=== PATIENT | female | born 1935 | race Caucasian/White ===

== ENCOUNTER 2017-11-13 06:47 | Inpatient (IN) | payer OTHER, MEDICARE ==
[2017-11-13] MEDS ORDERED: SODIUM CHLORIDE 0.9% FLUSH 10 ML FLUSH IVF (07:30)
[2017-11-13] MEDS: SODIUM CHLOR 0.9% 1000 ML INJ 1,000 ML IV ×4 (07:41→21:00)
[2017-11-13 07:42] LABS: AUTOMATED NEUTROPHIL # 14.5 TH/MM3 (1.8-7.7); BASOPHIL # 0.1 TH/MM3 (0-0.2); BASOPHIL % 0.7 % (0.0-2.0); EOSINOPHIL # 0.2 TH/MM3 (0-0.4); HEMATOCRIT 38.2 % (35.0-46.0); HEMO FLAGS DIFF FINAL; HEMOGLOBIN 13.2 GM/DL (11.6-15.3); LYMPH % 7.9 % (9.0-44.0); LYMPHOCYTE # 1.3 TH/MM3 (1.0-4.8); MEAN CELL VOLUME 90.5 FL (80.0-100.0); MEAN CORPUSCULAR HEMOGLOBIN 31.3 PG (27.0-34.0); MEAN CORPUSCULAR HGB CONC 34.5 % (32.0-36.0); MEAN PLATELET VOLUME 8.9 FL (7.0-11.0); MONO % 5.5 % (0.0-8.0); MONOCYTE # 0.9 TH/MM3 (0-0.9); NEUT % 84.9 % (16.0-70.0); PLATELET COUNT 263 TH/MM3 (150-450); RED BLOOD COUNT 4.22 MIL/MM3 (4.00-5.30)
[2017-11-13 07:48] LABS: CHLORIDE 111 MEQ/L (98-107); POTASSIUM 3.7 MEQ/L (3.5-5.1); SODIUM (NA) 140 MEQ/L (136-145)
[2017-11-13 07:51] LABS: ALBUMIN 3.4 GM/DL (3.4-5.0); BLOOD UREA NITROGEN 23 MG/DL (7-18); CALCIUM 8.7 MG/DL (8.5-10.1); GLUCOSE,RANDOM 123 MG/DL (74-106)
[2017-11-13 07:52] LABS: ANION GAP 6 MEQ/L (5-15); APTT (PATIENT) 24.3 SEC (24.3-30.1); BICARBONATE 23.1 MEQ/L (21.0-32.0); INTERNATIONAL NORMALIZED RATIO 1.1 RATIO; PROTHROMBIN TIME - PATIENT 10.7 SEC (9.8-11.6)
[2017-11-13 07:55] LABS: ALT (GPT) 21 U/L (10-53); AST (GOT) 14 U/L (15-37); GLOMERULAR FILTRATION RATE 47 ML/MIN (>89)
[2017-11-13 07:56] LABS: TOTAL BILIRUBIN ADULT 0.6 MG/DL (0.2-1.0)
[2017-11-13 07:57] LABS: TOTAL PROTEIN 7.2 GM/DL (6.4-8.2)
[2017-11-13 07:58] LABS: ALKALINE PHOSPHATASE 61 U/L (45-117)
[2017-11-13] MEDS: IOHEXOL 350 MG/ML 10 ML VIAL (for RAD DIAG) IVCONTRAST (08:30)
[2017-11-13] MEDS: CIPROFLOXACIN 400 MG PREMIX 200 ML IV ×2 (09:29→20:44)
[2017-11-13] MEDS ORDERED: NALOXONE HCL 0.4 MG/ML AMP IV PUSH (09:45)
[2017-11-13] MEDS ORDERED: SODIUM CHLORIDE 0.9% FLUSH 10 ML FLUSH IV FLUSH (09:45)
[2017-11-13] MEDS ORDERED: ACETAMINOPHEN 325 MG TAB PO ×2 (10:00→11:00)
[2017-11-13] MEDS: PANTOPRAZOLE SODIUM 40 MG VIAL IV PUSH ×2 (10:22→20:44)
[2017-11-13] MEDS: metroNIDAZOLE 500 MG INJ 100 ML IV ×2 (10:25→17:30)
[2017-11-13 12:05] LABS: BILIRUBIN, URINE NEG (NEG); BLOOD, URINE SMALL (NEG); GLUCOSE,URINE NEG (NEG); KETONE, URINE NEG (NEG); NITRITE,URINE NEG (NEG); URINE COLOR YELLOW (YELLW/STRAW); URINE LEUKOCYTE ESTERASE NEG (NEG)
[2017-11-13 12:08] LABS: COMMENT (UR) CULT NOT INDICATED; CULTURE IF INDICATED CULT NOT INDICATED; SQUAMOUS EPITHELIAL CELL URINE 0-5 /hpf (0-5)
[2017-11-13 12:08] LABS: METHOD OF COLLECTION CLEAN CATCH
[2017-11-13] MEDS: SODIUM CHLORIDE 0.9% FLUSH 10 ML FLUSH IV FLUSH (19:25)
[2017-11-13] MEDS ORDERED: SODIUM CHLOR 0.9% 1000 ML INJ 1,000 ML IV (21:00)
[2017-11-14] MEDS: metroNIDAZOLE 500 MG INJ 100 ML IV ×3 (02:53→18:27)
[2017-11-14] MEDS: SODIUM CHLOR 0.9% 1000 ML INJ 1,000 ML IV ×2 (06:12→14:22)
[2017-11-14 07:27] LABS: CHLORIDE 115 MEQ/L (98-107); POTASSIUM 3.5 MEQ/L (3.5-5.1); SODIUM (NA) 143 MEQ/L (136-145)
[2017-11-14 07:36] LABS: AUTOMATED NEUTROPHIL # 9.8 TH/MM3 (1.8-7.7); BASOPHIL % 0.4 % (0.0-2.0); EOSINOPHIL # 0.3 TH/MM3 (0-0.4); EOSINOPHIL % 2.2 % (0.0-4.0); HEMATOCRIT 30.9 % (35.0-46.0); HEMO FLAGS DIFF FINAL; HEMOGLOBIN 11.1 GM/DL (11.6-15.3); LYMPH % 12.7 % (9.0-44.0); LYMPHOCYTE # 1.6 TH/MM3 (1.0-4.8); MEAN CELL VOLUME 92.1 FL (80.0-100.0); MEAN CORPUSCULAR HGB CONC 35.8 % (32.0-36.0); MEAN PLATELET VOLUME 9.6 FL (7.0-11.0); MONO % 5.9 % (0.0-8.0); MONOCYTE # 0.7 TH/MM3 (0-0.9); NEUT % 78.8 % (16.0-70.0); RED BLOOD COUNT 3.35 MIL/MM3 (4.00-5.30); WHITE BLOOD COUNT 12.4 TH/MM3 (4.0-11.0)
[2017-11-14 07:37] LABS: PLATELET COUNT 175 TH/MM3 (150-450)
[2017-11-14 07:49] LABS: ALBUMIN 2.6 GM/DL (3.4-5.0); ALKALINE PHOSPHATASE 46 U/L (45-117); ALT (GPT) 17 U/L (10-53); ANION GAP 8 MEQ/L (5-15); AST (GOT) 11 U/L (15-37); BICARBONATE 20.1 MEQ/L (21.0-32.0); BLOOD UREA NITROGEN 10 MG/DL (7-18); CALCIUM 7.4 MG/DL (8.5-10.1); CALCIUM-PROTEIN CORRECTED 8.1 MG/DL (8.5-10.1); CREATININE 0.74 MG/DL (0.50-1.00); GLOMERULAR FILTRATION RATE 75 ML/MIN (>89); GLUCOSE,RANDOM 94 MG/DL (74-106); TOTAL BILIRUBIN ADULT 0.4 MG/DL (0.2-1.0); TOTAL PROTEIN 5.8 GM/DL (6.4-8.2)
[2017-11-14] MEDS: SODIUM CHLORIDE 0.9% FLUSH 10 ML FLUSH IV FLUSH ×2 (10:38→21:00)
[2017-11-14] MEDS: CIPROFLOXACIN 400 MG PREMIX 200 ML IV ×2 (10:38→21:56)
[2017-11-14] MEDS: PANTOPRAZOLE SODIUM 40 MG VIAL IV PUSH (10:38)
[2017-11-14] MEDS: PRAVASTATIN SOD 40 MG TAB PO (12:26)
[2017-11-14] MEDS: LOSARTAN 50 MG TAB PO (12:27)
[2017-11-15] MEDS: metroNIDAZOLE 500 MG INJ 100 ML IV (02:22)
[2017-11-15] MEDS: SODIUM CHLOR 0.9% 1000 ML INJ 1,000 ML IV (03:42)
[2017-11-15 07:36] LABS: AUTOMATED NEUTROPHIL # 5.7 TH/MM3 (1.8-7.7); BASOPHIL % 0.4 % (0.0-2.0); EOSINOPHIL # 0.3 TH/MM3 (0-0.4); HEMATOCRIT 30.2 % (35.0-46.0); HEMO FLAGS DIFF FINAL; HEMOGLOBIN 10.5 GM/DL (11.6-15.3); LYMPH % 15.7 % (9.0-44.0); LYMPHOCYTE # 1.2 TH/MM3 (1.0-4.8); MEAN CELL VOLUME 91.1 FL (80.0-100.0); MEAN CORPUSCULAR HEMOGLOBIN 31.8 PG (27.0-34.0); MEAN CORPUSCULAR HGB CONC 34.9 % (32.0-36.0); MEAN PLATELET VOLUME 9.2 FL (7.0-11.0); MONO % 6.8 % (0.0-8.0); MONOCYTE # 0.5 TH/MM3 (0-0.9); NEUT % 73.1 % (16.0-70.0); PLATELET COUNT 160 TH/MM3 (150-450); RED BLOOD COUNT 3.31 MIL/MM3 (4.00-5.30); RED CELL DISTRIBUTION WIDTH 12.8 % (11.6-17.2); WHITE BLOOD COUNT 7.7 TH/MM3 (4.0-11.0)
[2017-11-15 07:51] LABS: CHLORIDE 117 MEQ/L (98-107); POTASSIUM 3.4 MEQ/L (3.5-5.1); SODIUM (NA) 144 MEQ/L (136-145)
[2017-11-15 08:06] LABS: ANION GAP 9 MEQ/L (5-15); BICARBONATE 18.3 MEQ/L (21.0-32.0); BLOOD UREA NITROGEN 6 MG/DL (7-18); CALCIUM 7.2 MG/DL (8.5-10.1); CREATININE 0.69 MG/DL (0.50-1.00); GLOMERULAR FILTRATION RATE 81 ML/MIN (>89); GLUCOSE,RANDOM 115 MG/DL (74-106); MAGNESIUM 1.7 MG/DL (1.5-2.5)
[2017-11-15 08:19] LABS: CALCIUM-PROTEIN CORRECTED 8.1 MG/DL (8.5-10.1); TOTAL PROTEIN 5.4 GM/DL (6.4-8.2)
[2017-11-15] MEDS: SODIUM CHLORIDE 0.9% FLUSH 10 ML FLUSH IV FLUSH (09:05)
[2017-11-15] MEDS: LOSARTAN 50 MG TAB PO (09:06)
[2017-11-15] MEDS: PANTOPRAZOLE SOD 40 MG DELAYED RELEASE TAB PO (09:06)
[2017-11-15] MEDS: PRAVASTATIN SOD 40 MG TAB PO (09:06)
[2017-11-15] MEDS: CIPROFLOXACIN 500 MG TAB PO (09:06)
[2017-11-15] MEDS: metroNIDAZOLE 500 MG TAB PO (09:13)
[2017-11-15] MEDS: POTASSIUM CHLORIDE 10 MEQ CONTROLLED RELEASE TAB PO (09:13)
[2017-11-15] MEDS ORDERED: MESALAMINE HD 800 MG DELAYED RELEASE TAB PO (14:00)
== END 2017-11-15 13:26 | disposition home or self-care (01) | DRG 386 ==
LOC: PHED 06:47 → PHEDA 09:23 → PH3B 09:52
DX: K51.50 Left sided colitis without complications (principal); K55.9 Vascular disorder of intestine, unspecified; K92.1 Melena; E86.0 Dehydration; I10 Essential (primary) hypertension; E78.5 Hyperlipidemia, unspecified; K21.9 Gastro-esophageal reflux disease without esophagitis; N28.9 Disorder of kidney and ureter, unspecified; M19.90 Unspecified osteoarthritis, unspecified site; D72.829 Elevated white blood cell count, unspecified; Z88.2 Allergy status to sulfonamides; Z87.440 Personal history of urinary (tract) infections
CPT/HCPCS: 74018; 74177; 80048; 80053; 81001; 83735; 84155; 85025; 85610; 85730; 86850; 86900; 86901; 96360; 96361; 99285-25